=== PATIENT | male | born 1945 | race Caucasian/White ===

== ENCOUNTER 2020-03-26 15:54 | Emergency (ER) | payer MEDICARE ==
[~2020-03-26] VITALS: Ht 188 cm; Wt 81.8 kg
[2020-03-26] MEDS ORDERED: PRADAXA110 MG (17:54)
[2020-03-26] MEDS ORDERED: METFORMIN500 M2 PO (17:54)
[2020-03-26] MEDS ORDERED: METOPROL TAR25 MG PO (17:55)
[2020-03-26] MEDS ORDERED: NORVASC2.5 M1 PO (17:56)
[2020-03-26] MEDS ORDERED: TRAZODONE50 MG PO (17:56)
[2020-03-26] MEDS ORDERED: OMEPRAZOLE DR10 MG (17:57)
[2020-03-26] MEDS ORDERED: VOLTAREN1%GEL TOP (18:14)
[2020-03-26] MEDS ORDERED: MOTRIN400 MG PO (18:14)
[2020-03-26 18:49] VITALS: BP 155/72
== END 2020-03-26 18:55 | disposition home or self-care (01) ==
LOC: ED 15:54
DX: M54.5 Low back pain (principal); I10 Essential (primary) hypertension; W11.XXXA Fall on and from ladder, initial encounter; Y92.009 Unspecified place in unspecified non-institutional (private) residence as the place of occurrence of the external cause; Z86.73 Personal history of transient ischemic attack (TIA), and cerebral infarction without residual deficits